=== PATIENT | male | born 1960 | race African-American/Black ===

== ENCOUNTER 2024-11-19 11:02 | Emergency (ER) | payer SELFPAY ==
[2024-11-19] MEDS: Ketorolac 30 MG/ML SDV IM ONE (14:26)
[2024-11-19 16:21] VITALS: BP 147/78; PULSE 67
== END 2024-11-19 16:20 | disposition home or self-care (01) ==
LOC: MW.ED 11:02
DX: M1A.9XX1 Chronic gout, unspecified, with tophus (tophi) (principal); Z79.899 Other long term (current) drug therapy
CPT/HCPCS: 73630; 96372; 99283; J1100; J1885